=== PATIENT | male | born 1940 | race Hispanic/Latino ===

== ENCOUNTER 2018-10-31 12:37 | Emergency (ER) | payer OTHER ==
[~2018-10-31 12:37] MED LIST: AMLO5TAB9 PO; ASPI-1197 PO; CLON0.1T PO; FURO40TA7 PO; GLIM2TAB3 PO; LORA10TA7 PO; METO25TA6 PO; OMEG1CAP83 PO; PRAV40TA3 PO; PRED5TAB PO; SITA50TA PO; TAMS0.4C32 PO
[2018-10-31] MEDS ORDERED: ACETAMINOPHEN 325 MG TAB ONE (13:18)
== END 2018-10-31 14:46 | disposition home or self-care (01) ==
LOC: EDH 12:37
DX: S40.011A Contusion of right shoulder, initial encounter (principal); I11.0 Hypertensive heart disease with heart failure; I50.9 Heart failure, unspecified; E78.00 Pure hypercholesterolemia, unspecified; E11.9 Type 2 diabetes mellitus without complications; Z98.890 Other specified postprocedural states; W01.0XXA Fall on same level from slipping, tripping and stumbling without subsequent striking against object, initial encounter; Y93.01 Activity, walking, marching and hiking; Y92.512 Supermarket, store or market as the place of occurrence of the external cause; Y99.8 Other external cause status
CPT/HCPCS: 73030

== ENCOUNTER → 2018-11-07 | Outpatient (CLI) | payer OTHER | END | disposition home or self-care (01) | LOC: RAH 15:44 | PROVIDERS: ATTEND Internal Medicine | DX: M19.041 Primary osteoarthritis, right hand (principal); M19.031 Primary osteoarthritis, right wrist; R29.6 Repeated falls | CPT/HCPCS: 73110; 73130 ==

== ENCOUNTER 2019-03-20 22:32 | Observation (INO) | payer OTHER ==
[~2019-03-20] VITALS: Ht 152.4 cm; Wt 86.6 kg
[2019-03-20 23:32] LABS: APPEARANCE,URINE Clear (CLEAR); BILIRUBIN,URINE Negative (NEGATIVE); COLOR,URINE Yellow (YELLOW); GLUCOSE, URINE (UA) TRACE mg/dL (NEGATIVE); KETONES,URINE Negative (NEGATIVE); LEUKOCYTE ESTERASE ,URINE Negative (NEGATIVE); NITRATE,URINE Negative (NEGATIVE); OCCULT BLOOD,URINE Trace (NEGATIVE); PROTEIN,URINE 300 mg/dL (NEGATIVE); UROBILINOGEN,URINE 0.2 mg/dL (0.2-1.0)
[2019-03-20 23:47] LABS: BASOPHILS % (AUTO) 0.5 % (0.0-5.0); EOSINOPHILS % (AUTO) 0.8 % (0.0-8.0); HEMATOCRIT 26.8 % (42-54); LYMPHOCYTES % (AUTO) 13.6 % (21.0-51.0); MEAN CORPUSCULAR HEMOGLOBIN 31.4 pg (27.0-33.0); MEAN CORPUSCULAR HGB CONC 34.6 g/dL (32.0-36.0); MEAN CORPUSCULAR VOLUME 90.8 fL (79-99); MONOCYTES % (AUTO) 11.4 % (3.0-13.0); NEUTROPHILS % (AUTO) 73.7 % (40.0-77.0); PLATELET COUNT (AUTO) 210 K/uL (130-400); RED BLOOD CELL COUNT(AUTO) 2.95 MIL/uL (4.50-6.20); RED CELL DISTRIBUTION WIDTH 14.6 % (11.0-15.5); WHITE BLOOD COUNT (AUTO) 10.7 K/uL (4.8-10.8)
[2019-03-20 23:50] LABS: AMORPHOUS SEDIMENT,UR Moderate /LPF (None Seen); BACTERIA,URINE Few /HPF (None Seen)
[2019-03-21 00:03] LABS: INR 0.98 (0.85-1.15); PARTIAL THROMBOPLASTIN TIME 34.7 SEC (26.3-35.5); PROTHROMBIN TIME 10.3 SEC (9.6-11.6)
[2019-03-21 00:09] LABS: BILIRUBIN,TOTAL 0.3 mg/dL (0.2-1.0); CREATININE 5.4 mg/dL (0.5-1.5)
[2019-03-21] MEDS ORDERED: SODIUM CHLORIDE 0.9% 1000ML 1,000 ML IV SCH (02:39)
[2019-03-21 02:40] VITALS: BP 142/79
[2019-03-21] MEDS ORDERED: ACETAMINOPHEN 325 MG TAB PO PRN ×2 (02:45)
[2019-03-21] MEDS ORDERED: LACTULOSE 20 GM/30 ML UDCUP PO PRN (02:45)
[2019-03-21] MEDS ORDERED: DEXTROSE 50%-WATER 50 ML DISP.SYRIN IV PRN (02:45)
[2019-03-21] MEDS ORDERED: GLUCAGON 1MG KIT 1 MG ML IM PRN (02:45)
[2019-03-21] MEDS ORDERED: NITROGLYCERIN 0.4 MG SL TAB SL PRN (02:45)
[2019-03-21] MEDS ORDERED: ONDANSETRON HCL 4 MG/2 ML VIAL IV PRN (02:45)
[2019-03-21 03:37] LABS: % IRON SATURATION 14.2 % (30-44)
[2019-03-21 03:43] LABS: HEMOGLOBIN A1C 6.4 % (4.0-6.0)
[2019-03-21] MEDS ORDERED: INSULIN HUMULIN R 100 UNIT/ML 3ML SQ SCH (07:30)
[2019-03-21 07:38] LABS: CREATINE KINASE, TOTAL 104 U/L (21-232); MYOGLOBIN 167 ng/mL (10-92); TROPONIN I < 0.04 ng/mL (0.00-0.06)
[2019-03-21 08:00] VITALS: BP 167/79
[2019-03-21] MEDS ORDERED: HYDROCODONE/ACETAMINOPHEN 5/325 MG TAB PO PRN (08:30)
[2019-03-21] MEDS ORDERED: ENOXAPARIN SODIUM 30 MG/0.3 ML SQ SCH (09:00)
[2019-03-21] MEDS ORDERED: ASPIRIN 325 MG TABLET PO SCH (09:00)
[2019-03-21] MEDS ORDERED: FAMOTIDINE 20MG TAB 20 MG TAB PO SCH (09:00)
[2019-03-21] MEDS ORDERED: METOPROLOL TARTRATE 25 MG TAB PO SCH (09:00)
--- NOTE | 2019-03-21 10:40 | NUR ---
INSTRUCTIONS DISCHARGE INSTRUCTIONS GIVEN TO PATIENT AND FAMILY USING TEACH BACK. IV REMOVED WITH TIP INTACT. DIRECT PRESSURE APPLIED UNTIL BLEEDING CONTROLLED THE SITE COVERED WITH GAUZE AND SECURED WITH A BAND-AID. NO NEW PRESCRIPTIONS. F/U APPOINTMENTS MADE. NO QUESTIONS OR CONCERNS VOICED. PENDING A RIDE HOME.
== END 2019-03-21 12:00 | disposition home or self-care (01) ==
LOC: EDH 22:32 → EDHIP 03-21 01:40 → 3BH 03-21 02:40
PROVIDERS: ADMIT Internal Medicine; ATTEND Internal Medicine
DX: I12.0 Hypertensive chronic kidney disease with stage 5 chronic kidney disease or end stage renal disease (principal); N18.5 Chronic kidney disease, stage 5; E11.22 Type 2 diabetes mellitus with diabetic chronic kidney disease; E78.5 Hyperlipidemia, unspecified; E66.01 Morbid (severe) obesity due to excess calories; M54.2 Cervicalgia; Z68.36 Body mass index [BMI] 36.0-36.9, adult
CPT/HCPCS: 36415 ×2; 71045; 72040; 80053; 81001; 82550 ×2; 82728; 82948; 83036; 83540; 83550; 83605; 83874; 84484 ×2; 85025; 85610; 85730; 87040 ×2; 87088; 87804 ×2; 93005 ×2; 96372; 99284; G0378 ×10; J1650; 96374

== ENCOUNTER 2020-10-25 12:42 | Inpatient (IN) | payer OTHER ==
[~2020-10-25] VITALS: Ht 162.6 cm; Wt 86.3 kg
[~2020-10-25 12:42] MED LIST changes: +AMLO-257 PO; -AMLO5TAB9 PO; -ASPI-1197 PO; -CLON0.1T PO; +FERR325T22 PO; +FINA5TAB41 PO; -FURO40TA7 PO; -GLIM2TAB3 PO; +HYDR-4153 PO; -LORA10TA7 PO; -METO25TA6 PO; -OMEG1CAP83 PO; -PRAV40TA3 PO; -PRED5TAB PO; -SITA50TA PO
[2020-10-25 13:39] LABS: BASOPHILS % (AUTO) 0.2 % (0.0-5.0); EOSINOPHILS % (AUTO) 0.1 % (0.0-8.0); HEMATOCRIT 31.1 % (42-54); LYMPHOCYTES % (AUTO) 6.6 % (21.0-51.0); MEAN CORPUSCULAR HEMOGLOBIN 33.5 pg (27.0-33.0); MEAN CORPUSCULAR HGB CONC 36.3 g/dL (32.0-36.0); MEAN CORPUSCULAR VOLUME 92.3 fL (79-99); NEUTROPHILS % (AUTO) 84.6 % (40.0-77.0); PLATELET COUNT (AUTO) 225 K/uL (130-400); RED BLOOD CELL COUNT(AUTO) 3.37 MIL/uL (4.50-6.20); RED CELL DISTRIBUTION WIDTH 12.5 % (11.0-15.5); WHITE BLOOD COUNT (AUTO) 19.5 K/uL (4.8-10.8)
[2020-10-25 13:51] LABS: INR 1.01 (0.85-1.15); PROTHROMBIN TIME 10.8 SEC (9.6-11.6)
[2020-10-25 13:54] LABS: ALBUMIN 3.4 g/dL (3.5-5.0); BILIRUBIN,TOTAL 0.4 mg/dL (0.2-1.0); POTASSIUM 3.9 mmol/L (3.5-5.1); TOTAL PROTEIN, SERUM 7.5 g/dL (6.0-8.3)
[2020-10-25 13:58] LABS: CREATININE 10.8 mg/dL (0.5-1.5)
[2020-10-25 14:14] LABS: PARTIAL THROMBOPLASTIN TIME 20.5 SEC (26.3-35.5)
[2020-10-25 14:22] LABS: B-TYPE NATRIURETIC PEPTIDE 180 pg/mL (0-100)
[2020-10-25 15:37] LABS: APPEARANCE,URINE CLEAR (CLEAR); BILIRUBIN,URINE NEGATIVE (NEGATIVE); COLOR,URINE YELLOW (YELLOW); GLUCOSE, URINE (UA) NEGATIVE (NEGATIVE); KETONES,URINE NEGATIVE (NEGATIVE); LEUKOCYTE ESTERASE ,URINE SMALL (NEGATIVE); NITRATE,URINE NEGATIVE (NEGATIVE); OCCULT BLOOD,URINE MODERATE (NEGATIVE); PROTEIN,URINE 100 mg/dL (NEGATIVE); UROBILINOGEN,URINE 0.2 mg/dL (0.2-1.0)
[2020-10-25] MEDS ORDERED: ZOSYN 3.375GM+NS 50ML 50 ML IV ONE (15:54)
[2020-10-25 16:19] LABS: BACTERIA,URINE Few /HPF (None Seen); MUCUS,URINE Few LPF (None Seen); SQUAMOUS EPITHELIAL CELL,UR Few /HPF (0-2)
[2020-10-25] MEDS ORDERED: ONDANSETRON HCL 4 MG/2 ML VIAL IV PRN (16:45)
[2020-10-25] MEDS ORDERED: CEFTRIAXONE SODIUM 1 GM IV SCH (16:45)
[2020-10-25] MEDS ORDERED: LACTULOSE 20 GM/30 ML UDCUP PO PRN (16:45)
[2020-10-25] MEDS ORDERED: RENAL DOSE IV SCH (16:45)
[2020-10-25] MEDS ORDERED: DIPHENHYDRAMINE HCL 25 MG CAPSULE PO PRN (16:45)
[2020-10-25] MEDS ORDERED: DiphenhydrAMINE HCL 50 MG/ML VIAL IV PRN (16:45)
[2020-10-25] MEDS ORDERED: NITROGLYCERIN 0.4 MG SL TAB SL PRN (16:45)
[2020-10-25] MEDS ORDERED: LABETALOL 20 MG/4 ML DISP.SYRIN IV PRN (16:45)
[2020-10-25] MEDS ORDERED: GUAIFENESIN-DM 200/20 MG 10 ML PO PRN (16:45)
[2020-10-25] MEDS ORDERED: MAG HYDROX/AL HYDROX/SIMETH ES 30 ML SUSP UDCUP PO PRN (16:45)
[2020-10-25] MEDS ORDERED: ACETAMINOPHEN 325 MG TAB ONE (17:57)
[2020-10-25 20:35] VITALS: BP 114/70
[2020-10-25] MEDS ORDERED: ZOSYN 3.375GM+NS 50ML 50 ML IV SCH (21:00)
[2020-10-25] MEDS ORDERED: SUCR500T PO (21:25)
[2020-10-25] MEDS ORDERED: CLON1PAT13 TD (21:39)
[2020-10-25] MEDS ORDERED: LEVO100C4 PO (21:39)
[2020-10-25] MEDS ORDERED: ATOR10 PO (21:39)
[2020-10-25] MEDS ORDERED: AMLO-258 PO (21:39)
[2020-10-25] MEDS ORDERED: CLOP75TA32 PO (21:39)
[2020-10-25] MEDS ORDERED: AMIN30LI33 PO ×2 (21:39)
[2020-10-25] MEDS ORDERED: CILO50TA PO (21:39)
[2020-10-25] MEDS ORDERED: FOLI0.8T22 PO (21:39)
[2020-10-25] MEDS ORDERED: CALC0.253 PO (21:39)
[2020-10-25] MEDS ORDERED: FOLI0.8T2 PO (21:39)
[2020-10-25] MEDS ORDERED: TAMS-1 PO (21:39)
[2020-10-25] MEDS ORDERED: FURO40TA5 PO (21:39)
[2020-10-25] MEDS: HEPARIN SODIUM 5000UNIT/ML 1ML VIAL SQ SCH (23:12)
[2020-10-26] VITALS: BP 122/74
[2020-10-26] MEDS: ACETAMINOPHEN 325 MG TAB PO PRN (03:33)
[2020-10-26 03:50] VITALS: BP 126/69
[2020-10-26] MEDS ORDERED: ZOSYN 3.375GM+NS 50ML 50 ML IV SCH ×2 (04:00→21:00)
[2020-10-26 05:36] LABS: BASOPHILS % (AUTO) 0.2 % (0.0-5.0); LYMPHOCYTES % (AUTO) 8.5 % (21.0-51.0); MEAN CORPUSCULAR HEMOGLOBIN 33.1 pg (27.0-33.0); MEAN CORPUSCULAR HGB CONC 35.5 g/dL (32.0-36.0); MEAN CORPUSCULAR VOLUME 93.2 fL (79-99); MONOCYTES % (AUTO) 9.3 % (3.0-13.0); NEUTROPHILS % (AUTO) 81.5 % (40.0-77.0); PLATELET COUNT (AUTO) 247 K/uL (130-400); RED BLOOD CELL COUNT(AUTO) 3.11 MIL/uL (4.50-6.20); RED CELL DISTRIBUTION WIDTH 12.6 % (11.0-15.5); WHITE BLOOD COUNT (AUTO) 21.1 K/uL (4.8-10.8)
[2020-10-26 06:00] LABS: ALBUMIN 2.9 g/dL (3.5-5.0); BILIRUBIN,TOTAL 0.4 mg/dL (0.2-1.0); CRP QUANTITATIVE 171.5 mg/L (0.00-9.0); POTASSIUM 3.5 mmol/L (3.5-5.1); TOTAL PROTEIN, SERUM 6.8 g/dL (6.0-8.3)
[2020-10-26 06:08] LABS: CREATININE 10.9 mg/dL (0.5-1.5)
[2020-10-26 08:00] VITALS: BP 111/65
[2020-10-26] MEDS ORDERED: COMPOUND IV REFRIGERATED 1 EACH IVSOLN MISC PRN (08:45)
[2020-10-26] MEDS ORDERED: VANCOMYCIN PROTOCOL PER PHARMACY IV SCH (08:45)
[2020-10-26] MEDS ORDERED: VANCOMYCIN 1.25 GM in SODIUM CHLORIDE 0.9% 250 ML IV SCH (09:00)
[2020-10-26] MEDS: HEPARIN SODIUM 5000UNIT/ML 1ML VIAL SQ SCH ×2 (10:12→21:55)
[2020-10-26 11:50] VITALS: BP 120/67
[2020-10-26] MEDS: MEROPENEM 1 GM VIAL IVP SCH (13:42)
[2020-10-26 16:00] VITALS: BP 136/68
[2020-10-26 20:00] VITALS: BP 129/63
[2020-10-26] MEDS: ATORVASTATIN CALCIUM 20 MG TABLET PO SCH (21:53)
[2020-10-26] MEDS: TAMSULOSIN HCL 0.4 MG CAP.ER.24H PO SCH (21:53)
[2020-10-26] MEDS: Vitamin B Complex/Vit C/Folic Acid PO SCH (21:53)
[2020-10-26] MEDS: CILOSTAZOL 100 MG TAB PO SCH (21:54)
[2020-10-26] MEDS: AMLODIPINE BESYLATE 5 MG TAB PO SCH (21:54)
[2020-10-26] MEDS ORDERED: CEFTRIAXONE SODIUM 1 GM IV SCH (23:00)
[2020-10-27] VITALS: BP 123/62
[2020-10-27 03:58] VITALS: BP 92/54
[2020-10-27 05:27] LABS: BASOPHILS % (AUTO) 0.4 % (0.0-5.0); HEMATOCRIT 30.4 % (42-54); MEAN CORPUSCULAR HEMOGLOBIN 32.9 pg (27.0-33.0); MEAN CORPUSCULAR HGB CONC 34.9 g/dL (32.0-36.0); MEAN CORPUSCULAR VOLUME 94.4 fL (79-99); MONOCYTES % (AUTO) 9.8 % (3.0-13.0); NEUTROPHILS % (AUTO) 77.2 % (40.0-77.0); PLATELET COUNT (AUTO) 236 K/uL (130-400); RED BLOOD CELL COUNT(AUTO) 3.22 MIL/uL (4.50-6.20); RED CELL DISTRIBUTION WIDTH 12.4 % (11.0-15.5); WHITE BLOOD COUNT (AUTO) 15.6 K/uL (4.8-10.8)
[2020-10-27 06:06] LABS: ALBUMIN 2.6 g/dL (3.5-5.0); BILIRUBIN,TOTAL 0.4 mg/dL (0.2-1.0); POTASSIUM 4.2 mmol/L (3.5-5.1); TOTAL PROTEIN, SERUM 6.8 g/dL (6.0-8.3)
[2020-10-27 06:11] LABS: CREATININE 10.6 mg/dL (0.5-1.5)
[2020-10-27 06:13] LABS: CRP QUANTITATIVE 202.7 mg/L (0.00-9.0)
[2020-10-27] MEDS: LEVOTHYROXINE 100 MCG TABLET PO SCH (06:41)
[2020-10-27] MEDS: SUCROFERRIC OXYHYDROXIDE 1000 MG PO SCH ×3 (08:00→12:51)
[2020-10-27 08:12] VITALS: BP 125/66
[2020-10-27] MEDS: FUROSEMIDE 40 MG TABLET PO SCH (11:12)
[2020-10-27] MEDS: CALCITRIOL 0.25 MCG CAPSULE PO SCH (11:13)
[2020-10-27] MEDS: CILOSTAZOL 100 MG TAB PO SCH ×2 (11:13→21:08)
[2020-10-27] MEDS: CLOPIDOGREL BISULFATE 75 MG TAB PO SCH (11:13)
[2020-10-27] MEDS: FINASTERIDE 5 MG TABLET PO SCH (11:13)
[2020-10-27 11:24] VITALS: BP 109/62
[2020-10-27] MEDS: HEPARIN SODIUM 5000UNIT/ML 1ML VIAL SQ SCH ×2 (11:29→21:09)
[2020-10-27] MEDS: MEROPENEM 1 GM VIAL IVP SCH (12:51)
[2020-10-27 19:44] VITALS: BP 136/71
[2020-10-27] MEDS: Vitamin B Complex/Vit C/Folic Acid PO SCH (21:08)
[2020-10-27] MEDS: TAMSULOSIN HCL 0.4 MG CAP.ER.24H PO SCH (21:08)
[2020-10-27] MEDS: ATORVASTATIN CALCIUM 20 MG TABLET PO SCH (21:08)
[2020-10-27] MEDS: AMLODIPINE BESYLATE 5 MG TAB PO SCH (21:08)
[2020-10-27 23:12] VITALS: BP 144/70
[2020-10-28 03:09] VITALS: BP 147/73
[2020-10-28 05:43] LABS: BASOPHILS % (AUTO) 0.4 % (0.0-5.0); LYMPHOCYTES % (AUTO) 11.9 % (21.0-51.0); MEAN CORPUSCULAR HGB CONC 34.8 g/dL (32.0-36.0); MEAN CORPUSCULAR VOLUME 94.8 fL (79-99); MONOCYTES % (AUTO) 10.5 % (3.0-13.0); NEUTROPHILS % (AUTO) 75.3 % (40.0-77.0); PLATELET COUNT (AUTO) 250 K/uL (130-400); RED BLOOD CELL COUNT(AUTO) 3.27 MIL/uL (4.50-6.20); RED CELL DISTRIBUTION WIDTH 12.4 % (11.0-15.5); WHITE BLOOD COUNT (AUTO) 12.4 K/uL (4.8-10.8)
[2020-10-28 06:16] LABS: ALBUMIN 2.6 g/dL (3.5-5.0); BILIRUBIN,TOTAL 0.4 mg/dL (0.2-1.0); CRP QUANTITATIVE 160.7 mg/L (0.00-9.0); POTASSIUM 3.1 mmol/L (3.5-5.1); TOTAL PROTEIN, SERUM 6.9 g/dL (6.0-8.3)
[2020-10-28 06:22] LABS: CREATININE 9.6 mg/dL (0.5-1.5)
[2020-10-28] MEDS: LEVOTHYROXINE 100 MCG TABLET PO SCH (06:28)
[2020-10-28 07:00] VITALS: BP 159/75
[2020-10-28] MEDS: SUCROFERRIC OXYHYDROXIDE 1000 MG PO SCH ×3 (08:00→17:00)
[2020-10-28] MEDS ORDERED: POTASSIUM CHLORIDE 10 MEQ/TAB.SA PO SCH (09:00)
[2020-10-28] MEDS: ACETAMINOPHEN 325 MG TAB PO PRN ×3 (09:03→23:06)
[2020-10-28] MEDS: FERROUS SULFATE 325 MG TABLET.DR PO SCH (09:09)
[2020-10-28] MEDS: CLOPIDOGREL BISULFATE 75 MG TAB PO SCH (09:10)
[2020-10-28] MEDS: FUROSEMIDE 40 MG TABLET PO SCH (09:11)
[2020-10-28] MEDS: CALCITRIOL 0.25 MCG CAPSULE PO SCH (09:11)
[2020-10-28] MEDS: CILOSTAZOL 100 MG TAB PO SCH ×2 (09:12→22:54)
[2020-10-28] MEDS: HEPARIN SODIUM 5000UNIT/ML 1ML VIAL SQ SCH ×2 (09:25→22:55)
[2020-10-28] MEDS: FINASTERIDE 5 MG TABLET PO SCH (09:27)
[2020-10-28 11:00] VITALS: BP_SYST 116; BP_SYST 159; BP_DIAS 58; BP_DIAS 75
[2020-10-28] MEDS: MEROPENEM 1 GM VIAL IVP SCH (12:40)
[2020-10-28] MEDS ORDERED: TRAMADOL HCL 50 MG TABLET PO PRN (15:15)
[2020-10-28 16:00] VITALS: BP 150/71
[2020-10-28 19:20] VITALS: BP 152/50
[2020-10-28 19:45] VITALS: BP 110/54
[2020-10-28] MEDS: Vitamin B Complex/Vit C/Folic Acid PO SCH (22:53)
[2020-10-28] MEDS: AMLODIPINE BESYLATE 5 MG TAB PO SCH (22:54)
[2020-10-28] MEDS: ATORVASTATIN CALCIUM 20 MG TABLET PO SCH (22:55)
[2020-10-28] MEDS: TAMSULOSIN HCL 0.4 MG CAP.ER.24H PO SCH (22:59)
[2020-10-29 00:20] VITALS: BP 110/62
[2020-10-29 03:46] VITALS: BP 148/57
[2020-10-29 05:33] LABS: CREATININE 9.2 mg/dL (0.5-1.5); POTASSIUM 2.9 mmol/L (3.5-5.1)
[2020-10-29] MEDS ORDERED: LEVOTHYROXINE 150 MCG TABLET ONE (06:05)
[2020-10-29] MEDS ORDERED: LEVOTHYROXINE 112 MCG TABLET ONE (06:07)
[2020-10-29] MEDS: LEVOTHYROXINE 100 MCG TABLET PO SCH (06:17)
[2020-10-29] MEDS: SUCROFERRIC OXYHYDROXIDE 1000 MG PO SCH ×3 (08:00→17:00)
[2020-10-29] MEDS: POTASSIUM CHLORIDE 10 MEQ/TAB.SA PO SCH (09:00)
[2020-10-29] MEDS ORDERED: POTASSIUM CHLORIDE 20 MEQ ERTAB PO SCH (09:00)
[2020-10-29 09:01] VITALS: BP 121/69
[2020-10-29] MEDS: CLOPIDOGREL BISULFATE 75 MG TAB PO SCH (09:41)
[2020-10-29] MEDS: FUROSEMIDE 40 MG TABLET PO SCH (09:42)
[2020-10-29] MEDS: FINASTERIDE 5 MG TABLET PO SCH (09:43)
[2020-10-29] MEDS: CILOSTAZOL 100 MG TAB PO SCH ×2 (09:43→21:51)
[2020-10-29] MEDS: CALCITRIOL 0.25 MCG CAPSULE PO SCH (09:43)
[2020-10-29] MEDS: ACETAMINOPHEN 325 MG TAB PO PRN ×3 (09:48→21:53)
[2020-10-29] MEDS: HEPARIN SODIUM 5000UNIT/ML 1ML VIAL SQ SCH (10:03)
[2020-10-29] MEDS: MEROPENEM 1 GM VIAL IVP SCH (11:26)
[2020-10-29 18:40] VITALS: BP 130/74
[2020-10-29 20:00] VITALS: BP 127/68
[2020-10-29] MEDS: AMLODIPINE BESYLATE 5 MG TAB PO SCH (21:51)
[2020-10-29] MEDS: ATORVASTATIN CALCIUM 20 MG TABLET PO SCH (21:51)
[2020-10-29] MEDS: TAMSULOSIN HCL 0.4 MG CAP.ER.24H PO SCH (21:51)
[2020-10-29] MEDS: Vitamin B Complex/Vit C/Folic Acid PO SCH (21:51)
[2020-10-30] VITALS: BP 100/61
[2020-10-30 04:00] VITALS: BP 114/64
[2020-10-30] MEDS: LEVOTHYROXINE 100 MCG TABLET PO SCH (06:08)
[2020-10-30 06:10] LABS: BASOPHILS % (AUTO) 0.5 % (0.0-5.0); EOSINOPHILS % (AUTO) 2.6 % (0.0-8.0); HEMATOCRIT 26.6 % (42-54); LYMPHOCYTES % (AUTO) 10.6 % (21.0-51.0); MEAN CORPUSCULAR HEMOGLOBIN 31.9 pg (27.0-33.0); MEAN CORPUSCULAR HGB CONC 34.6 g/dL (32.0-36.0); MEAN CORPUSCULAR VOLUME 92.4 fL (79-99); MONOCYTES % (AUTO) 12.5 % (3.0-13.0); NEUTROPHILS % (AUTO) 70.7 % (40.0-77.0); PLATELET COUNT (AUTO) 218 K/uL (130-400); RED BLOOD CELL COUNT(AUTO) 2.88 MIL/uL (4.50-6.20); RED CELL DISTRIBUTION WIDTH 12.4 % (11.0-15.5); WHITE BLOOD COUNT (AUTO) 9.6 K/uL (4.8-10.8)
[2020-10-30 06:42] LABS: BILIRUBIN,TOTAL 0.4 mg/dL (0.2-1.0); MAGNESIUM 1.8 mg/dL (1.80-2.40)
[2020-10-30 06:44] LABS: CREATININE 8.9 mg/dL (0.5-1.5)
[2020-10-30] MEDS: SUCROFERRIC OXYHYDROXIDE 1000 MG PO SCH ×3 (08:00→17:00)
[2020-10-30 08:35] VITALS: BP 116/60
[2020-10-30] MEDS: CLOPIDOGREL BISULFATE 75 MG TAB PO SCH (08:45)
[2020-10-30] MEDS: CILOSTAZOL 100 MG TAB PO SCH (08:46)
[2020-10-30] MEDS: POTASSIUM CHLORIDE 10 MEQ/TAB.SA PO SCH (08:46)
[2020-10-30] MEDS: FINASTERIDE 5 MG TABLET PO SCH (08:46)
[2020-10-30] MEDS: FERROUS SULFATE 325 MG TABLET.DR PO SCH (08:47)
[2020-10-30] MEDS: FUROSEMIDE 40 MG TABLET PO SCH (08:47)
[2020-10-30] MEDS: CALCITRIOL 0.25 MCG CAPSULE PO SCH (08:47)
[2020-10-30] MEDS ORDERED: PANTOPRAZOLE 40 MG/VIAL IVP SCH (09:00)
[2020-10-30] MEDS ORDERED: GLUCAGON 1MG KIT 1 MG ML IM PRN (09:15)
[2020-10-30] MEDS ORDERED: DEXTROSE 50%-WATER 50 ML DISP.SYRIN IV PRN (09:15)
[2020-10-30] MEDS: INSULIN HUMULIN R 100 UNIT/ML 3ML SQ SCH ×2 (11:30→16:13)
[2020-10-30 11:51] VITALS: BP 134/68
[2020-10-30] MEDS: MEROPENEM 1 GM VIAL IVP SCH (13:28)
[2020-10-30] MEDS ORDERED: GABA-529 PO (15:40)
[2020-10-30 16:21] VITALS: BP 112/56
[2020-10-30] MEDS ORDERED: POTA20PA32 PO (18:09)
[2020-10-31] MEDS ORDERED: AMINO AC PO SCH ×2 (07:30→09:00)
[2020-10-31] MEDS ORDERED: PROTEIN HYDR PO SCH ×2 (07:30→09:00)
[2020-10-31] MEDS ORDERED: WHEY PRO PO SCH ×2 (07:30→09:00)
[2020-10-31] MEDS ORDERED: [UNRECOGNIZED DRUG - OTHER] PO SCH (09:00)
== END 2020-10-30 19:27 | disposition home or self-care (01) | DRG 871 ==
LOC: EDH 12:42 → EDHIP 16:32 → 3CH 19:41
PROVIDERS: ADMIT Family Medicine; ATTEND Family Medicine
PROC: 3E1M39Z Irrigation of Peritoneal Cavity using Dialysate, Percutaneous Approach (ICD-10-PCS; principal; 2020-10-25)
DX: A41.50 Gram-negative sepsis, unspecified (principal); N18.6 End stage renal disease; N39.0 Urinary tract infection, site not specified; I13.2 Hypertensive heart and chronic kidney disease with heart failure and with stage 5 chronic kidney disease, or end stage renal disease; G93.40 Encephalopathy, unspecified; E11.22 Type 2 diabetes mellitus with diabetic chronic kidney disease; E11.51 Type 2 diabetes mellitus with diabetic peripheral angiopathy without gangrene; E66.9 Obesity, unspecified; E78.5 Hyperlipidemia, unspecified; I25.10 Atherosclerotic heart disease of native coronary artery without angina pectoris; I50.9 Heart failure, unspecified; K43.9 Ventral hernia without obstruction or gangrene; K57.90 Diverticulosis of intestine, part unspecified, without perforation or abscess without bleeding; R65.20 Severe sepsis without septic shock; Z20.822 Contact with and (suspected) exposure to COVID-19; E78.00 Pure hypercholesterolemia, unspecified; R53.81 Other malaise; Z99.2 Dependence on renal dialysis; Z83.3 Family history of diabetes mellitus; Z68.32 Body mass index [BMI] 32.0-32.9, adult
CPT/HCPCS: 36415; 70450; 70551; 71045; 74176; 80048; 80053; 81001; 82270; 82550; 82948; 83735; 83880; 84145; 84484; 85025; 85610; 85730; 86140; 87040; 87071; 87077; 87088; 87186; 87205; 87426; 87804; 93005; 93971; 97039; 99291; C9113; G0378; J0696; J1644; J2185; J2543; J3370; J7050; U0003

== ENCOUNTER → 2020-12-20 | Outpatient (CLI) | payer OTHER ==
[~2020-12-20] MED LIST changes: +AMIN30LI33 PO; -AMLO-257 PO; +AMLO-258 PO; +ATOR10 PO; +CALC0.253 PO; +CILO50TA PO; +CLON1PAT13 TD; +CLOP75TA32 PO; +FOLI0.8T2 PO; +FOLI0.8T22 PO; +FURO40TA5 PO; +GABA-529 PO; -HYDR-4153 PO; +LEVO100C4 PO; +POTA20PA32 PO; +SUCR500T PO; +TAMS-1 PO; -TAMS0.4C32 PO
== END | disposition home or self-care (01) ==
LOC: RAH 08:44
PROVIDERS: ATTEND Urology
DX: I25.10 Atherosclerotic heart disease of native coronary artery without angina pectoris (principal); K57.30 Diverticulosis of large intestine without perforation or abscess without bleeding; R18.8 Other ascites; N19 Unspecified kidney failure
CPT/HCPCS: 74176

== ENCOUNTER 2021-03-25 22:12 | Observation (INO) | payer OTHER ==
[~2021-03-25] VITALS: Ht 154.9 cm; Wt 87.1 kg
[~2021-03-25 22:12] MED LIST changes: -AMIN30LI33 PO; +LIQUACEL LIQUID30 ML PO
[2021-03-25 22:39] LABS: BASOPHILS % (AUTO) 0.6 % (0.0-5.0); EOSINOPHILS % (AUTO) 2.1 % (0.0-8.0); LYMPHOCYTES % (AUTO) 17.3 % (21.0-51.0); MEAN CORPUSCULAR HEMOGLOBIN 33.3 pg (27.0-33.0); MEAN CORPUSCULAR HGB CONC 35.3 g/dL (32.0-36.0); MEAN CORPUSCULAR VOLUME 94.4 fL (79-99); MONOCYTES % (AUTO) 10.2 % (3.0-13.0); NEUTROPHILS % (AUTO) 67.7 % (40.0-77.0); PLATELET COUNT (AUTO) 275 K/uL (130-400); RED BLOOD CELL COUNT(AUTO) 3.39 MIL/uL (4.50-6.20); RED CELL DISTRIBUTION WIDTH 14.7 % (11.0-15.5); WHITE BLOOD COUNT (AUTO) 10.9 K/uL (4.8-10.8)
[2021-03-25 22:50] VITALS: BP 96/61
[2021-03-25 23:00] LABS: ALBUMIN 2.9 g/dL (3.5-5.0); BILIRUBIN,TOTAL 0.4 mg/dL (0.2-1.0); TOTAL PROTEIN, SERUM 7.4 g/dL (6.0-8.3)
[2021-03-25 23:12] VITALS: BP 129/72
[2021-03-25 23:13] LABS: CREATININE 9.1 mg/dL (0.5-1.5); POTASSIUM 2.8 mmol/L (3.5-5.1)
[2021-03-25] MEDS ORDERED: ZOSYN 3.375GM+NS 50ML 50 ML IV ONE (23:15)
[2021-03-25] MEDS ORDERED: SODIUM CHLORIDE 0.9% 500ML 500 ML IV SCH (23:15)
[2021-03-25 23:28] LABS: PROTHROMBIN TIME 10.9 SEC (9.6-11.6)
[2021-03-25] MEDS ORDERED: ONDANSETRON HCL 4 MG/2 ML VIAL IVP ONE (23:45)
[2021-03-26] MEDS ORDERED: SODIUM CHLORIDE 0.9% 500ML 500 ML IV ONE (00:20)
[2021-03-26] MEDS ORDERED: LACTULOSE 20 GM/30 ML UDCUP PO PRN (00:45)
[2021-03-26] MEDS ORDERED: HYDRALAZINE HCL 20 MG/ML VIAL IV PRN (00:45)
[2021-03-26] MEDS ORDERED: ONDANSETRON HCL 4 MG/2 ML VIAL IV PRN (00:45)
[2021-03-26] MEDS ORDERED: GABAPENTIN 100 MG CAPSULE PO PRN (00:45)
[2021-03-26] MEDS ORDERED: NITROGLYCERIN 0.4 MG SL TAB SL PRN (00:45)
[2021-03-26] MEDS ORDERED: MAG HYDROX/AL HYDROX/SIMETH ES 30 ML SUSP UDCUP PO PRN (00:45)
[2021-03-26] MEDS ORDERED: GUAIFENESIN-DM 200/20 MG 10 ML PO PRN (00:45)
[2021-03-26] MEDS ORDERED: CEFTRIAXONE SODIUM 1 GM IV SCH (00:45)
[2021-03-26] MEDS ORDERED: POTASSIUM BICARB/CIT AC 25 MEQ TABLET.EFF PO SCH ×2 (00:45→09:00)
[2021-03-26] MEDS ORDERED: ACETAMINOPHEN 325 MG TAB PO PRN ×2 (00:45)
[2021-03-26] MEDS ORDERED: ACETAMINOPHEN-CODEINE 300/30MG TAB PO PRN (00:45)
[2021-03-26 01:03] LABS: BILIRUBIN,URINE Negative (NEGATIVE); GLUCOSE, URINE (UA) Negative (NEGATIVE); KETONES,URINE Trace mg/dL (NEGATIVE); LEUKOCYTE ESTERASE ,URINE Small (NEGATIVE); NITRATE,URINE Negative (NEGATIVE); OCCULT BLOOD,URINE Negative (NEGATIVE); PROTEIN,URINE POS 2+ mg/dL (NEGATIVE)
[2021-03-26 01:04] LABS: APPEARANCE,URINE HAZY (CLEAR); COLOR,URINE YELLOW (YELLOW)
[2021-03-26 01:22] LABS: AMORPHOUS SEDIMENT,UR Few /LPF (None Seen); BACTERIA,URINE Few /HPF (None Seen); SQUAMOUS EPITHELIAL CELL,UR 0-2 /HPF (0-2)
[2021-03-26 02:37] VITALS: BP 112/54
[2021-03-26 06:54] VITALS: BP 91/57
[2021-03-26] MEDS ORDERED: LEVOTHYROXINE 100 MCG TABLET PO SCH (07:30)
[2021-03-26 07:39] LABS: POTASSIUM 2.9 mmol/L (3.5-5.1)
[2021-03-26 07:48] VITALS: BP 94/53
[2021-03-26] MEDS: VELPHORO PO SCH ×2 (08:00→12:40)
[2021-03-26] MEDS ORDERED: GLUCAGON 1MG KIT 1 MG ML IM PRN (08:30)
[2021-03-26] MEDS: KCL 20 MEQ ERTAB PO SCH ×2 (08:30→16:27)
[2021-03-26] MEDS ORDERED: DEXTROSE 50%-WATER 50 ML DISP.SYRIN IV PRN (08:30)
[2021-03-26] MEDS ORDERED: FUROSEMIDE 40 MG TABLET PO SCH (09:00)
[2021-03-26] MEDS ORDERED: CLOPIDOGREL BISULFATE 75 MG TAB PO SCH (09:00)
[2021-03-26] MEDS ORDERED: PANTOPRAZOLE SODIUM 40 MG TABLET.DR PO SCH (09:00)
[2021-03-26] MEDS ORDERED: ENOXAPARIN SODIUM 30 MG/0.3 ML SQ SCH (09:00)
[2021-03-26] MEDS ORDERED: CALCITRIOL 0.25 MCG CAPSULE PO SCH (09:00)
[2021-03-26] MEDS ORDERED: FINASTERIDE 5 MG TABLET PO SCH (09:00)
[2021-03-26] MEDS ORDERED: FERROUS SULFATE 325 MG TABLET.DR PO SCH (09:00)
[2021-03-26] MEDS ORDERED: LIQUACEL PROTEIN PO SCH (09:00)
[2021-03-26] MEDS ORDERED: CLONIDINE 0.2 MG/ 24 HR PATCH TD SCH (09:00)
[2021-03-26] MEDS ORDERED: CILOSTAZOL 100 MG TAB PO SCH (09:00)
[2021-03-26] MEDS: INSULIN HUMULIN R 100 UNIT/ML 3ML SQ SCH ×2 (10:30→12:41)
[2021-03-26] MEDS ORDERED: INSULIN HUMULIN R 100 UNIT/ML 3ML SQ SCH (11:30)
[2021-03-26 11:33] VITALS: BP 113/61
[2021-03-26] MEDS ORDERED: LINA5TAB PO (16:12)
[2021-03-26] MEDS ORDERED: FERR210T PO (16:12)
[2021-03-26] MEDS ORDERED: METO-408 PO (16:12)
[2021-03-26] MEDS ORDERED: FOLI0.8T2 PO (16:12)
[2021-03-26] MEDS ORDERED: CALC0.253 PO (16:12)
[2021-03-26 17:13] VITALS: BP 102/54
[2021-03-26] MEDS ORDERED: TAMSULOSIN HCL 0.4 MG CAP.ER.24H PO SCH (21:00)
[2021-03-26] MEDS ORDERED: AMLODIPINE BESYLATE 5 MG TAB PO SCH (21:00)
[2021-03-26] MEDS ORDERED: Vitamin B Complex/Vit C/Folic Acid PO SCH (21:00)
[2021-03-26] MEDS ORDERED: ATORVASTATIN CALCIUM 10 MG TABLET PO SCH (21:00)
== END 2021-03-26 17:50 | disposition home or self-care (01) ==
LOC: EDH 22:12 → EDHIP 03-26 00:31
PROVIDERS: ADMIT Internal Medicine Critical Care Medicine; ATTEND Internal Medicine Critical Care Medicine
DX: N39.0 Urinary tract infection, site not specified (principal); Z20.822 Contact with and (suspected) exposure to COVID-19; D72.829 Elevated white blood cell count, unspecified; I12.0 Hypertensive chronic kidney disease with stage 5 chronic kidney disease or end stage renal disease; E11.22 Type 2 diabetes mellitus with diabetic chronic kidney disease; N18.6 End stage renal disease; I25.10 Atherosclerotic heart disease of native coronary artery without angina pectoris; E66.9 Obesity, unspecified; E87.6 Hypokalemia; Z99.2 Dependence on renal dialysis; Z79.02 Long term (current) use of antithrombotics/antiplatelets; Z79.899 Other long term (current) drug therapy; Z68.36 Body mass index [BMI] 36.0-36.9, adult
CPT/HCPCS: 36415 ×2; 71045; 74176; 80048; 80053; 81001; 82948 ×2; 83605; 84132; 85025; 85610; 86850; 86900; 86901; 87040 ×2; 87088; 87426; 87804 ×2; 93005; 96365; 96366; 96372; 96375; 99285; G0378 ×17; J0696; J1650; J1815 ×2; J2405; J2543; J7040